=== PATIENT | male | born 1990 | race Caucasian/White ===

== ENCOUNTER 2021-06-19 17:42 | Emergency (ER) | payer MEDICAID, OTHER ==
[~2021-06-19] VITALS: Ht 172.7 cm; Wt 70.8 kg
[2021-06-19] MEDS ORDERED: PENICILLIN G BENZ 1200000 UNITS/2 ML SYRG IM ONE (21:45)
[2021-06-19 21:56] VITALS: BP 125/75
== END 2021-06-19 22:42 | disposition home or self-care (01) ==
LOC: ER 17:42
DX: A53.9 Syphilis, unspecified (principal); R50.9 Fever, unspecified; R51.9 Headache, unspecified; M79.10 Myalgia, unspecified site
CPT/HCPCS: 96372; 99283; J0561

== ENCOUNTER 2023-01-07 17:34 | Emergency (ER) | payer OTHER ==
[~2023-01-07] VITALS: Ht 170.2 cm; Wt 71.5 kg
[2023-01-07] MEDS ORDERED: IBUP800T27 PO (19:57)
[2023-01-07] MEDS ORDERED: CYCL-837 PO (19:57)
[2023-01-07] MEDS ORDERED: KETOROLAC TROMETH 60MG/2ML VIAL IM ONE (20:00)
[2023-01-07 20:49] VITALS: BP 111/63
== END 2023-01-07 20:56 | disposition home or self-care (01) ==
LOC: ER 17:34
DX: M54.42 Lumbago with sciatica, left side (principal); M54.41 Lumbago with sciatica, right side
CPT/HCPCS: 72100; 96372; 99283; J1885

== ENCOUNTER 2023-12-08 18:09 | Emergency (ER) | payer MEDICAID, OTHER ==
[~2023-12-08] VITALS: Ht 170.2 cm; Wt 74.4 kg
[~2023-12-08 18:09] MED LIST: CYCL-837 PO; IBUP-1456 PO
[2023-12-08] MEDS ORDERED: CYCL-839 PO (22:08)
[2023-12-08] MEDS ORDERED: PRED20TA2 PO (22:08)
[2023-12-08] MEDS ORDERED: NABU-72 PO (22:08)
[2023-12-08] MEDS: IBUPROFEN 600 MG TAB PO ONE (22:16)
[2023-12-08 22:30] VITALS: BP 121/76; PULSE 70; RESP 18; TEMP 98; O2SAT 98
== END 2023-12-08 22:34 | disposition home or self-care (01) ==
LOC: ER 18:09
DX: S33.5XXA Sprain of ligaments of lumbar spine, initial encounter (principal); M54.32 Sciatica, left side; M54.31 Sciatica, right side; Z79.899 Other long term (current) drug therapy; X58.XXXA Exposure to other specified factors, initial encounter; Y93.89 Activity, other specified; Y92.89 Other specified places as the place of occurrence of the external cause; Y99.8 Other external cause status
CPT/HCPCS: 72100